=== PATIENT | male | born 1965 | race Caucasian/White ===

== ENCOUNTER 2018-05-03 09:48 | Emergency (ER) | payer OTHER, SELFPAY ==
[2018-05-03 09:49] VITALS: BP 140/88; PULSE 77; RESP 15; TEMP 36.8; O2SAT 99; BMI 19.8
--- NOTE | 2018-05-03 09:57 | ED.VISSUMM ---
- ER Visit Summary Date of Service: 05/03/18 Chief Complaint: Chest pain History of Present Illness: The patient is a 52 M who presents with chest pain. He states he had an episode this morning of tightness in his chest. It lasted about 15 minutes. He currently has no symptoms. He did not feel short of breath with this. He states laying down made it worse. He did not have any fever. No recent illnesses. He does have a family history of cardiac disease. He is a smoker but has no other risk factors. He does not take any daily medications. Physical Examination: Vital signs reviewed. HEENT exam unremarkable. Heart is regular rate and rhythm without murmurs. Lungs are clear to auscultation. Abdomen is soft and nontender. Extremities reveal no edema. Peripheral pulses are equal. Skin exam normal. Neurologic exam normal. Test Results: EKG is sinus rhythm with no ST changes. Chest x-ray normal. Labs are also normal Emergency Department Course and Treatment: She was given aspirin. He had no pain when he arrived to the emergency department. His PEARL score is 0. I feel he can be discharged to follow-up with his PCP. Treatment Plan: [] Disposition: Discharge Impression: Chest pain, resolved This note was generated with [employer] dictation software. It may contain incorrect words, spelling, and punctuation that were not noted in review of the chart prior to signing ED Disposition - Plan for ED Patient: Chief Complaint: Chest Pain Referrals: Ambrocio Rosenthal DO [Primary Care Provider] -
[2018-05-03] MEDS: Aspirin 81 MG TAB.CHEW 324 MG PO (10:15)
[2018-05-03 10:16] VITALS: O2SAT 98
[2018-05-03 10:38] LABS: Absolute Lymphocyte Count 1.51 X10^3/ul (0.83-4.51); Absolute Neutrophil Count 4.4 X10^3/uL (2.0-7.7); Basophil# 0.01 X10^3/uL; Basophil% 0.1 % (0-1); Eosinophil# 0.06 X10^3/uL; Eosinophils% 0.9 % (0-5); Hematocrit 43.9 % (40-54); Hemoglobin 14.9 g/dl (13.0-16.5); Lymphocyte # 1.51 X10^3/ul (4.0); Lymphocyte % 22.2 % (19-41); Mean Corp Hgb Conc 33.9 g/gl (32-36); Mean Corpuscular Volume 100.2 fL (80-94); Mean Platelet Vol. 9.9 fl (6.2-12.0); Monocyte# 0.77 X10^3/uL; Monocyte% 11.3 % (0-10); Neutrophil # 4.43 X10^3/uL (2.7-7.7); Neutrophil % 65.2 % (47-70); Platelet Count 221 K/mm3 (150-450); RBC Distribution Width CV 12.9 % (11.6-14.6); RBC Distribution Width SD 47.3 fl (35.1-43.9); Red Blood Count 4.38 M/mm3 (4.6-6.2); White Blood Count 6.8 K/mm3 (4.4-11.0)
[2018-05-03 10:39] LABS: POSITIVE COUNT NO; POSITIVE DIFFERENTIAL NO; POSITIVE MORPHOLOGY NO
[2018-05-03 10:43] LABS: Anion Gap 6 (5-15); BUN 11 mg/dL (7-18); BUN/Creat Ratio 13.8 RATIO (10-20); Calcium,Total 8.7 mg/dL (8.5-10.1); Chloride 107 mmol/L (98-107); EST Glomerular Filtration Rate 109 mL/min (>60); Est Glom Filt Rate - Afr Amer 132 mL/min (>60); Estimated Creatinine Clearance 91.63 ml/min; Glucose 82 mg/dL (74-106); Potassium 3.8 mmol/L (3.5-5.1); Sodium Level 139 mmol/L (136-145)
[2018-05-03 11:04] VITALS: BP 123/85; PULSE 77; RESP 20; O2SAT 99
--- NOTE | 2018-05-03 11:06 | ED.DEP ---
ED Disposition - Plan for ED Patient: Disposition: Home or Assisted Living Chief Complaint: Chest Pain Instructions: ED Chest Pain Atypical Unkn Cause Referrals: Ambrocio Rosenthal DO [Primary Care Provider] -
[2018-05-03 11:15] VITALS: BP 123/85; PULSE 77; RESP 18; O2SAT 98
== END 2018-05-03 11:17 | disposition home or self-care (01) ==
PROVIDERS: Emergency Provider Emergency Medicine; Family Provider Family Medicine; PCP Family Medicine
DX: R07.9 Chest pain, unspecified (principal); F17.200 Nicotine dependence, unspecified, uncomplicated
CPT/HCPCS: 71045; 80048; 84484; 85025; 93005; 99284

== ENCOUNTER → 2018-05-13 10:18 | Outpatient (CLI) | payer OTHER, SELFPAY ==
--- NOTE | 2018-05-13 11:32 | STRESSREP ---
Stress Test Report Exercise stress test. 52-year-old man with a history of chest pain. Stress protocol: Resting EKG demonstrates normal sinus rhythm with a rate of 73 bpm normal intervals and noted resting blood pressure 722/74 mmHg. Patient exercised according to regular [facility] protocol for total duration of 9 minutes the maximum heart rate attained was 153 bpm which was 90% of maximum predicted heart rate the maximum workload was 10.1 metabolic equivalents. The patient maintained sinus rhythm throughout the recording. At rest there were no ST or T-wave changes noted suggest ischemia peak exercise upsloping ST changes only were noted with no meet the criteria for ischemia. The resting blood pressure is 122/74 with a peak blood pressure of 200/56 rate pressure product was 30,200. Conclusion: Exercise stress test with no EKG criteria for ischemia at a high workload Excellent functional capacity.
== END ==
PROVIDERS: Family Provider Family Medicine; PCP Family Medicine; Visit Provider Preventive Medicine Occupational Medicine
DX: R07.9 Chest pain, unspecified (principal)
CPT/HCPCS: 93017